=== PATIENT | female | born 1955 | race Caucasian/White ===

== ENCOUNTER → 2017-11-10 09:19 | Outpatient (CLI) | payer OTHER, SELFPAY ==
--- NOTE | 2017-11-10 | DI.MRI.S_ITS ---
PROCEDURE: MR LUMBAR SPINE WO CON INDICATIONS: LUMBOSACRAL NEURITIS TECHNIQUE: Noncontrast sagittal T1 spin echo and T2 fast echo, sagittal STIR, axial T1 and T2 fast spin echo through the lumbar spine. In cases with scoliosis, additional coronal T2 fast spin echo may be performed. COMPARISON: None. FINDINGS: Image quality: Excellent. Alignment and Curvature: Trace retrolisthesis of L2 on L3. Bone Marrow: Chronic appearing mild L2 compression fracture with mild marrow edema seen in the superior endplate. This could be related to superior endplate Schmorl's node versus subacute compression fracture. Diffuse endplate spurring. Remaining vertebral body heights preserved. Spinal Cord: Conus medullaris terminates at the L2 level. Visualized cord demonstrates normal signal and size. Paraspinous Soft Tissues: No paravertebral masses. T11-T12: Mild posterior disc bulge with mild canal narrowing. L1-L2: Broad-based posterior disc bulge with posterior annular fissure. Bilateral facet arthropathy. No definite foraminal stenosis. L2-L3: Broad-based posterior disc bulge and bilateral facet arthropathy. Mild canal narrowing. Moderate bilateral foraminal stenoses. L3-L4: Bilateral facet arthropathy. No high-grade canal stenosis. Mild bilateral foraminal narrowing. L4-L5: Broad-based posterior disc bulge and bilateral facet disease. No high-grade canal stenosis. Minimal bilateral foraminal stenoses. L5-S1: Broad-based posterior disc bulge and bilateral facet arthropathy. Mild canal narrowing. Mild bilateral foraminal stenoses.. IMPRESSION: Mild L2 compression fracture with low-grade marrow edema in the upper end plate which could be related to Schmorl's node versus subacute fracture. No high-grade canal stenosis. Moderate bilateral L2-L3 foraminal stenoses. Trace retrolisthesis of L2 on L3. Dictated by: Alan Hankins M.D. on 11/10/2017 at 9:05 Approved by: Alan Hankins M.D. on 11/10/2017 at 9:11
== END ==
PROVIDERS: PCP Family Medicine; Visit Provider Family Medicine
DX: M54.17 Radiculopathy, lumbosacral region (principal); M48.061 Spinal stenosis, lumbar region without neurogenic claudication; M48.56XG Collapsed vertebra, not elsewhere classified, lumbar region, subsequent encounter for fracture with delayed healing
CPT/HCPCS: 72148

== ENCOUNTER → 2018-07-19 14:06 | Outpatient (CLI) | payer OTHER, SELFPAY ==
--- NOTE | 2018-07-19 | DI.RAD.S_ITS ---
PROCEDURE: XR FOOT RT MIN 3V INDICATIONS: RIGHT FOOT PAIN TECHNIQUE: 3 views of the foot were acquired. COMPARISON: None. FINDINGS: Bones: No fractures or dislocations. No suspicious bony lesions. There is moderate metatarsus primus varus and hallux valgus. Secondary degenerative change at first MTP joint is moderate in severity. The morphology of the medial first metatarsal head indicates possible prior bunionectomy in that area. Soft tissues: No tibiotalar joint effusion. Achilles tendon appears normal. IMPRESSION: Podiatry related findings, possible prior medial first metatarsal head osteotomy in this clinical circumstance given the morphology of that area. Dictated by: Miguel Denis M.D. on 07/19/2018 at 15:00 Approved by: Miguel Denis M.D. on 07/19/2018 at 15:03
== END ==
PROVIDERS: PCP Family Medicine; Visit Provider Family Medicine
DX: M79.671 Pain in right foot (principal); M20.31 Hallux varus (acquired), right foot; M20.11 Hallux valgus (acquired), right foot; M19.271 Secondary osteoarthritis, right ankle and foot
CPT/HCPCS: 73630

== ENCOUNTER → 2019-02-01 13:59 | Outpatient (CLI) | payer OTHER, SELFPAY ==
--- NOTE | 2019-02-01 | DI.MRI.S_ITS ---
PROCEDURE: MR LUMBAR SPINE WO CON INDICATIONS: Radiculopathy, lumbosacral region TECHNIQUE: Noncontrast sagittal T1 spin echo and T2 fast echo, sagittal STIR, axial T1 and T2 fast spin echo through the lumbar spine. In cases with scoliosis, additional coronal T2 fast spin echo may be performed. COMPARISON: [facility], MR, MR LUMBAR SPINE WO CON, 11/10/2017, 9:35. FINDINGS: Image quality: Excellent. Alignment and Curvature: Multilevel degenerative endplate sclerosis and spurring. Diffuse facet arthropathy. Trace retrolisthesis of L1 on L2 and L2 on L3. Bone Marrow: No acute fracture. Chronic appearing L2 compression fracture. Previous described L2 upper end plate low-grade marrow edema has resolved. Spinal Cord: Conus medullaris terminates at the L2 level. Visualized cord demonstrates normal signal and size. Paraspinous Soft Tissues: No paravertebral masses. L1-L2: Posterior fissure. Mild canal narrowing which is unchanged. No lateral recess narrowing. No definite foraminal stenosis. L2-L3: No central canal narrowing. Partial effacement of both lateral recesses with bilaterally symmetric appearance. Moderate bilateral foraminal narrowing which is unchanged. There is minimal if any nerve root compression on the left, as before. L3-L4: No canal or lateral recess narrowing. Mild bilateral foraminal narrowing L4-L5: No canal or lateral recess narrowing. Mild bilateral foraminal narrowing L5-S1: No canal or lateral recess narrowing. Mild bilateral foraminal narrowing, unchanged IMPRESSION: Overall, no interval change. Moderate bilateral L2-L3 foraminal narrowing. Dictated by: Alan Hankins M.D. on 02/01/2019 at 16:58 Approved by: Alan Hankins M.D. on 02/01/2019 at 17:06
== END ==
PROVIDERS: PCP Family Medicine; Visit Provider Family Medicine
DX: M54.17 Radiculopathy, lumbosacral region (principal); M48.061 Spinal stenosis, lumbar region without neurogenic claudication; M54.42 Lumbago with sciatica, left side; M54.41 Lumbago with sciatica, right side; R20.0 Anesthesia of skin
CPT/HCPCS: 72148

== ENCOUNTER → 2019-04-17 14:16 | Outpatient (CLI) | payer OTHER, SELFPAY ==
--- NOTE | 2019-04-17 | DI.RAD.S_ITS ---
PROCEDURE: XR RIBS LT MIN 3V W CXR1V INDICATIONS: LEFT RIB PAIN TECHNIQUE: 2 views of the left ribs were acquired, along with a single view chest. COMPARISON: CR, XR CHEST 1VW (PORTABLE), 04/29/2015, 21:30. FINDINGS: Surgical changes and devices: Lower cervical spine fusion. Bones and chest wall: No acute fractures or dislocations. Old third, fourth and fifth anterior fractures with deformity. No suspicious bony lesions. Overlying soft tissues appear unremarkable. Partial resection of the distal left clavicle. Lungs and pleura: No pleural effusions or pneumothorax. Lungs appear clear. Mediastinum: Mediastinal contours appear normal. Heart size is normal. IMPRESSION: No acute displaced rib fractures. Dictated by: Rina Tinajero M.D. on 04/17/2019 at 17:46 Approved by: Rina Tinajero M.D. on 04/17/2019 at 18:13
== END ==
PROVIDERS: PCP Family Medicine; Visit Provider Chiropractor
DX: R07.81 Pleurodynia (principal)
CPT/HCPCS: 71101

== ENCOUNTER → 2020-12-18 13:42 | Outpatient (CLI) | payer OTHER, SELFPAY ==
--- NOTE | 2020-12-18 | DI.RAD.S_ITS ---
PROCEDURE: XR WRIST RT MIN 3V INDICATIONS: Pain in right wrist TECHNIQUE: 4 views of the wrist were acquired. COMPARISON: None. FINDINGS: Diagnostic sensitivity of study limited by artifact related to fiberglass splint. Bones: No displace fractures or dislocations. No suspicious bony lesions. Scaphoid view: No displaced scaphoid fracture. Soft tissues: No suspicious soft tissue calcifications. IMPRESSION: No displaced fracture identified, however nondisplaced fractures would be difficult to diagnose due to artifact related fiberglass splint. Dictated by: Cami Sweet MD, PhD on 12/18/2020 at 17:21 Approved by: Cami Sweet MD, PhD on 12/18/2020 at 17:22
== END ==
PROVIDERS: PCP Family Medicine; Referring Provider Family Medicine; Visit Provider Family Medicine
DX: M25.531 Pain in right wrist (principal)
CPT/HCPCS: 73110

== ENCOUNTER → 2021-11-04 09:30 | Outpatient (CLI) | payer OTHER, SELFPAY | PROVIDERS: PCP Family Medicine; Referring Provider Family Medicine; Visit Provider Family Medicine | DX: Z13.820 Encounter for screening for osteoporosis (principal); Z78.0 Asymptomatic menopausal state; M81.0 Age-related osteoporosis without current pathological fracture; Z90.710 Acquired absence of both cervix and uterus | CPT/HCPCS: 77080 ==